=== PATIENT | female | born 1970 | race African-American/Black ===

== ENCOUNTER 2018-02-21 09:49 | Outpatient (CLI) | payer OTHER | END 2018-02-21 09:50 | disposition home or self-care (01) | LOC: BICULT 09:49 | PROVIDERS: ATTEND Internal Medicine Gastroenterology | DX: K29.80 Duodenitis without bleeding (principal); K64.9 Unspecified hemorrhoids | CPT/HCPCS: 76705 ==

== ENCOUNTER 2018-02-24 14:23 | Outpatient (CLI) | payer OTHER | END 2018-02-24 14:24 | disposition home or self-care (01) | LOC: BICMAMMO 14:23 | PROVIDERS: ATTEND Specialist | DX: N64.4 Mastodynia (principal) | CPT/HCPCS: 77066; G0279 ==

== ENCOUNTER 2019-07-13 14:28 | Outpatient (CLI) | payer OTHER ==
--- NOTE | 2019-07-13 16:03 | MMO ---
Bilateral MAMMO Bilat Screen [facility]. CLINICAL HISTORY: Patient is 48 years old and is seen for screening. The patient has no family history of breast cancer. The patient has no personal history of cancer. VIEWS: The views performed were: bilateral craniocaudal with tomosynthesis and bilateral mediolateral oblique with tomosynthesis. FILMS COMPARED: The present examination has been compared to prior imaging studies performed at [facility] on 04/14/2006, 02/18/2017 and 02/24/2018. This study has been interpreted with the assistance of computer-aided detection. MAMMOGRAM FINDINGS: The breasts are heterogeneously dense, which could obscure a lesion on mammography. There are stable benign appearing calcifications seen in both breasts. There are no suspicious masses, calcifications or areas of architectural distortion. There are no suspicious masses, suspicious calcifications, or new areas of architectural distortion. IMPRESSION: THERE IS NO MAMMOGRAPHIC EVIDENCE OF MALIGNANCY. A ROUTINE FOLLOW-UP MAMMOGRAM IN 1 YEAR IS RECOMMENDED. THE RESULTS OF THIS EXAM WERE SENT TO THE PATIENT. ACR BI-RADS Category 2 - Benign finding MAMMOGRAPHY NOTE: 1. A negative mammogram report should not delay a biopsy if a dominant of clinically suspicious mass is present. 2. Approximately 10% to 15% of breast cancers are not detected by mammography. 3. Adenosis and dense breasts may obscure an underlying neoplasm. Reported by: DANIKA ABBOTT MD Electonically Signed: [id number]
== END 2019-07-13 14:29 | disposition home or self-care (01) ==
LOC: BICMAMMO 14:28
PROVIDERS: ATTEND Family Medicine
DX: Z12.31 Encounter for screening mammogram for malignant neoplasm of breast (principal)
CPT/HCPCS: 77063; 77067

== ENCOUNTER 2020-07-15 13:02 | Outpatient (CLI) | payer OTHER ==
--- NOTE | 2020-07-15 13:34 | RAD ---
Exam: Cervical spine 5 views HISTORY: Cervical spondylolysis. FINDINGS: On the open-mouth projection, lateral masses of C1 and C2 articulate probably. On the AP pr ojection, there is mild facet arthropathy at multiple levels. No malalignment Predental space is normal. No prevertebral soft tissue swelling. In the neutral lateral position, the re is straightening of normal cervical lordosis. Mild loss of disc space height and osteophyte formation at C3-C4 and C4-C5. Mild to moderate degenerative changes at C5-C6 and C6-C7. Cervicothorac ic junction is unremarkable. Upon extension and flexion, there is no abnormal motion. IMPRESSION: Multilevel degenerative changes of the cervical spine as described above.
== END 2020-07-15 13:03 | disposition home or self-care (01) ==
LOC: BICRAD 13:02
PROVIDERS: ATTEND Neurological Surgery
DX: M47.812 Spondylosis without myelopathy or radiculopathy, cervical region (principal)
CPT/HCPCS: 72050

== ENCOUNTER 2020-07-22 09:45 | Outpatient (CLI) | payer OTHER ==
[2020-07-22 11:39] LABS: INR-International Normal Ratio 0.9; Prothrombin Time 12.3 sec (12.0-14.7)
--- NOTE | 2020-07-22 11:41 | RAD ---
PA AND LATERAL CHEST: Date: 07/22/2020 HISTORY: Preop. COMPARISON: 11/18/2012 study. FINDINGS: Heart size and mediastinum within normal limits. The lungs are clear of any infiltrative process. Art hritic changes in the spine. IMPRESSION: No active intrathoracic disease. POS: NIK
[2020-07-22 12:10] LABS: #Eosinphils 0.1 thou/uL (0.0-0.7); #Lymphocytes 2.6 thou/uL (1.20-3.40); #Monocytes 0.4 thou/uL (0.11-0.59); #Neutrophils 2.9 thou/uL (1.40-6.50); %Basophils 0.2 % (0.0-1.0); %Eosinophils 1.6 % (0.0-10.0); %Lymphocytes 42.2 % (21.0-51.0); %Monocytes 7.4 % (0.0-10.0); %Neutrophils 48.6 % (42.0-75.0); Mean Corpuscular HGB CONC 33.4 g/dL (32.0-36.0); Mean Corpuscular Hemoglobin 31.3 pg (27.0-31.0); Mean Corpuscular Volume 93.6 fL (78.0-98.0); Mean Platelet Volume 11.4 fL (7.4-10.4); Platelet Count 193 thou/uL (130-400); RBC Distribution Width 11.9 % (11.5-14.5); Red Blood Cell (RBC) Count 3.85 mill/uL (4.20-5.40)
[2020-07-22 12:19] LABS: Anion Gap 16 mmol/L (10-20); BUN (Urea Nitrogen) 12 mg/dL (7.0-18.7); Calc. Creatinine Clearance 0 mL/min (70-130); Carbon Dioxide 21 mmol/L (22-29); Chloride 107 mmol/L (98-107); Estimated GFR-MDRD 89; Potassium 4.3 mmol/L (3.5-5.1); Sodium 140 mmol/L (136-145)
[2020-07-22 12:20] LABS: ALT (SGPT) 15 U/L (8-55); AST (SGOT) 16 U/L (5-34); Albumin 4.2 g/dL (3.5-5.0); Alkaline Phosphatase 89 U/L (40-110); Bilirubin, Total 0.5 mg/dL (0.2-1.2); Calcium 9.3 mg/dL (7.8-10.44); Glucose 86 mg/dL (70-105); Protein, Total 7.2 g/dL (6.0-8.3)
[2020-07-22 14:47] LABS: Bilirubin Negative (Negative); Blood, Urine Negative (Negative); Clarity Clear (Clear); Glucose, Urine (Dipstick) Normal (Negative); Ketone, Urine Negative (Negative); Leukocyte Negative Leu/uL (Negative); Nitrite Negative (Negative); Protein, Urine (Dipstick) Negative (Neg-Trace); Specific Gravity, Urine 1.016 (1.002-1.036); Urobilinogen Normal mg/dL (Less than 2); pH, Urine 6.5 (5.0-9.0)
== END 2020-07-22 09:46 | disposition home or self-care (01) ==
LOC: SCSRAD 09:45
PROVIDERS: ATTEND Family Medicine
DX: Z01.818 Encounter for other preprocedural examination (principal)
CPT/HCPCS: 36415; 71046; 80053; 81003; 84443; 85025; 85610; 85730

== ENCOUNTER 2020-08-28 06:40 | Outpatient (CLI) | payer OTHER ==
[2020-08-28 13:22] LABS: Hemoglobin 12.3 g/dL (12.0-16.0); Mean Corpuscular HGB CONC 31.9 G/DL (32.0-36.0); Mean Corpuscular Hemoglobin 29.5 PG (27.0-33.0); Mean Corpuscular Volume 92.3 fl (80.0-100.0); Mean Platelet Volume 12.4 fl (7.4-10.4); Platelet Count 254 10x3/uL (130-400); RBC Distribution Width 12.9 % (11.5-14.5); Red Blood Cell (RBC) Count 4.17 10x6/uL (3.90-5.20); White Blood Cell (WBC) Count 6.4 10x3/uL (4.5-11.0)
[2020-08-28 13:44] LABS: PTT 25.8 sec (22.0-33.0); Prothrombin Time 10.6 sec (9.5-12.1)
[2020-08-28 20:53] LABS: SARS-CoV-2 MS2 Positive; SARS-CoV-2 N Gene Negative; SARS-CoV-2 S Gene Negative; SARS-CoV-2 by NAA Not Detected (NotDetected); SARS-CoV-2 orf1ab Negative
== END 2020-08-28 06:41 | disposition home or self-care (01) ==
LOC: LABBT 06:40
PROVIDERS: ATTEND Neurological Surgery
DX: Z01.812 Encounter for preprocedural laboratory examination (principal); Z20.828 Contact with and (suspected) exposure to other viral communicable diseases; M50.222 Other cervical disc displacement at C5-C6 level
CPT/HCPCS: 85027; 85610; 85730; 87635; 93005; 93010; U0003

== ENCOUNTER 2020-09-02 05:43 | Day surgery (SDC) | payer OTHER ==
[2020-08-30 11:37] VITALS: BMI 34.2
--- NOTE | 2020-09-01 15:47 | HP ---
REASON FOR HISTORY AND PHYSICAL: Surgery on 09/02/2020. Case #[id number]. HISTORY OF PRESENT ILLNESS: Ms. Valdovinos is a 49-year-old female with a chief complaint of neck and right arm pain. The pain radiates into right arm following the C7 and C6 dermatomes. Currently, works as a [employer] and her job aggravates her pain. She has tried medications, physical therapy, and injections with no lasting relief of her symptoms. Denies bladder or bowel dysfunction. REVIEW OF SYSTEMS: CONSTITUTIONAL: Denies fever or chills. ENT: Denies change in vision or hearing. CARDIAC: Denies chest pain, shortness of breath, or diaphoresis. PULMONARY: Denies shortness of breath, cough, or hemoptysis. GASTROINTESTINAL: Denies abdominal pain, nausea, vomiting, diarrhea, or change in stool formation and consistency. GENITOURINARY: Denies trouble with urination, frequency of urination, or bloody urine. SKIN: Denies skin rash, bruising, bleeding, or skin masses. MUSCULOSKELETAL: As per History of Present Illness. NEUROLOGICAL: As per History of Present Illness. PSYCHOLOGICAL: As per History of Present Illness. MEDICATIONS: 1. Losartan 50 mg. 2. Metoprolol. 3. Amlodipine. 4. Acetaminophen and codeine No. 4. 5. Ibuprofen. 6. Pantoprazole. 7. Hydrochlorothiazide. 8. Toprol 50 mg. ALLERGIES: STADOL. PAST MEDICAL HISTORY: Polyarthralgia, hypertension, normal stress test. PAST SURGICAL HISTORY: Two ; hernia x2; left knee scope; hysterectomy, partial; right breast cyst, benign. HOSPITALIZATIONS: As above surgeries. FAMILY HISTORY: Father, , diagnosed with heart disease. Mother, alive, hypertension. Siblings, alive, hypertension. SOCIAL HISTORY: Nonsmoker. Denies illicit drugs or alcohol use. PHYSICAL EXAMINATION: VITAL SIGNS: Weight 218, height 67 inches, and BMI 34.30. HEENT: Pupils are equal. Extraocular movements are intact. NECK: Soft, supple. No masses are noted. Range of motion is intact and slightly painful. NEUROLOGIC: Awake, alert, and oriented x3. Memory, attention, and fund of knowledge normal. Cranial nerves are grossly intact. Gait and station are normal. Toe, heel, and tandem walking normal. Motor exam; normal strength in the deltoids, biceps, triceps, wrist extensors, and interossei. Sensory exam; there is no dermatomal sensory loss in C5, C6, C7, C8, or T1. Negative Tinel's at wrist and elbows. Spine exam, Spurling's with neck pain only. No arm pain. IMAGING DATA: Myelogram of the C-spine, four-level disk disease with canal foraminal stenosis. X-ray of C-spine, flexion and extension stable. ASSESSMENT: 1. Cervical disk disorder at C5-C6 with radiculopathy. 2. Cervical disk disorder at C6-C7 level with radiculopathy. PLAN: 1. ACDF C5-C6 and C6-C7. 2. Preop labs; CBC, PT, PTT, COVID-19. 3. Anesthesia clearance. INFORMED CONSENT: We discussed the indications, risks, benefits, alternatives, and expected results from surgery. The risks discussed included, but were not limited to, bleeding, infection, CSF leak, nerve damage, weakness, swallowing trouble, feeding tube placement, tracheal injury, esophageal injury, vocal cord injury, spinal cord injury, incontinence, paralysis, ventilator dependency, wheelchair dependency, stroke, loss of vision, carotid artery injury, jugular vein injury, hardware misplacement, cardiopulmonary complications of anesthesia or . Long-term complications discussed included, but were not limited to hardware failure and degeneration of surrounding disk. She understands the risks and is willing to proceed. Job ID: [id number]
[2020-09-02] MEDS ORDERED: Thrombin 5000 UNITS/5 ML VIAL ONE (06:00)
[2020-09-02] MEDS ORDERED: Midazolam HCl 2 mg/2 ml Vial ONE (06:27)
[2020-09-02] MEDS ORDERED: Fentanyl 250 MCG/5 ML VIAL ONE (06:29)
[2020-09-02] MEDS ORDERED: Rocuronium Bromide 10 MG/ML (10ML VIAL) ONE (09:44)
[2020-09-02] MEDS ORDERED: Ondansetron PF 4 MG/2 ML Vial ONE (09:44)
[2020-09-02] MEDS ORDERED: Vecuronium 10 MG VIAL ONE (09:44)
[2020-09-02] MEDS ORDERED: Dexamethasone 20 MG/5 ML VIAL ONE (09:44)
[2020-09-02] MEDS ORDERED: Esmolol 100 MG/10 ML VIAL ONE (09:44)
[2020-09-02] MEDS ORDERED: Lidocaine 1% PF 5 ML VIAL ONE (09:44)
[2020-09-02] MEDS ORDERED: PROPOFOL 200 MG/20 ML VIAL ONE (09:44)
[2020-09-02] MEDS ORDERED: Glycopyrrolate 0.2 MG/ML 5 ML SYRINGE ONE (09:44)
[2020-09-02] MEDS ORDERED: PHENYLEPHRINE-NS 100 MCG/ML 10 ML SYRINGE ONE (09:44)
--- NOTE | 2020-09-02 10:42 | OP ---
DATE OF PROCEDURE: 09/02/2020 ANIMAL SCIENTIST: Ervin Mosqueda PA-C PREOPERATIVE INDICATION: Treat pain and prevent neurological deterioration. PREOPERATIVE DIAGNOSIS: Cervical intervertebral disk disease with right C6 and C7 radiculopathy. POSTOPERATIVE DIAGNOSIS: Cervical intervertebral disk disease with right C6 and C7 radiculopathy. PROCEDURES PERFORMED: 1. Anterior cervical diskectomy, C5-C6 and C6-C7. 2. Intervertebral arthrodesis C5-6, C6-7 3. Placement of intervertebral biomechanical device, C5-C6 and C6-C7. 4. Anterior cervical plating, C5-C6 and C6-C7 (separate from the interbody device). 5. Local morselized autograft and morselized allograft. 6. Operating microscope. PREOPERATIVE MEDICATION: Ancef 2 g IV. DRAIN NUMBER: Zero. DRAIN TYPE: None. DESCRIPTION OF PROCEDURE: The patient was brought to the operating room. General endotracheal anesthesia was induced. The patient was positioned supine on the operating table and her head supported by a gel-filled donut-shaped headrest. A lateral fluoro radiograph was used to plan our incision. The right side of the neck was sterilely prepped and draped. We opened our incision with a 10 blade knife and controlled bleeding with bipolar cautery. We dissected sharply to the platysma and cut this muscle in line with our incision. We continued our dissection medial to the sternocleidomastoid and lateral to the trachea and esophagus and arrived at the prevertebral space. We placed a marker at C5-C6 and took a lateral fluoro radiograph to confirm the levels upon which we were operating. We elevated the longus colli muscles and placed a lateral retractor under those muscles. Distraction pins were placed at C5 and C7. We distracted across the intervening interspaces. We incised the interspaces with a 15 blade knife and removed disk contents using curettes and rongeurs. The operating microscope was brought into the field. Under microscopic magnification and using microsurgical techniques, we removed the remainder of the intervertebral disk. We accessed the ventral epidural space with microcurettes. We removed posterior osteophytes and posterior longitudinal ligament with Kerrison rongeurs from one neural foramen to the other until we had a good decompression of the dura throughout. This was performed at C5-C6 and again at C6-C7. We turned our attention to arthrodesis. We prepared the endplates for grafting with curettes. We measured the height of each interspace to 6 mm with a bone rasp. We brought the appropriately-sized PEEK intervertebral grafts into the field. Osteophytes were removed during our decompression, were cleaned of soft tissue attachments, morcellized and added into demineralized bone matrix to form our fusion substrate. The substrate was placed in the PEEK devices and those were advanced into the interspaces under radiographic guidance to the appropriate depth. We removed our distraction pins and the operating microscope. A 28-mm anterior cervical plate was brought into the field. We drilled engine pilot holes through the plate into the vertebral bodies and affixed the plate using 14 mm screws. Fixed angle screws were used at C7 and variable angle screws at C5 and C6. We engaged the locking mechanism over each of the six screws. AP and lateral fluoro radiographs confirmed adequate positioning for instrumentation. We irrigated copiously with bacitracin irrigation. We closed the wound in anatomical layers and applied a sterile dressing. This was a clean case, no contamination. Job ID: [id number] MTDD
[2020-09-02] MEDS ORDERED: Fentanyl 100 MCG/2 ML VIAL ONE (11:08)
[2020-09-02] MEDS ORDERED: Promethazine HCl 25 MG/ML VIAL ONE (13:22)
[2020-09-02] MEDS ORDERED: Scopolamine 1.5 mg/72 hour Patch ONE (13:36)
[2020-09-02] MEDS ORDERED: HYDROcodone/Acetaminophen 5/325 mg Tablet ONE (14:14)
== END 2020-09-02 15:09 | disposition home or self-care (01) ==
LOC: SDC 05:43
PROVIDERS: ATTEND Neurological Surgery
PROC: 0RG1071 Fusion of Cervical Vertebral Joint with Autologous Tissue Substitute, Posterior Approach, Posterior Column, Open Approach (ICD-10-PCS; principal; 2020-09-02)
DX: M50.122 Cervical disc disorder at C5-C6 level with radiculopathy (principal); K21.9 Gastro-esophageal reflux disease without esophagitis; Z79.899 Other long term (current) drug therapy; Z88.5 Allergy status to narcotic agent
CPT/HCPCS: 76000; C1713; C1776; J0690; J1100; J2250; J2405; J2550; J2704; J3010; J3490

== ENCOUNTER 2020-09-07 20:49 | Emergency (ER) | payer OTHER ==
[2020-09-07] MEDS ORDERED: Ketorolac Tromethamine 30 MG/ML VIAL ONE (21:58)
[2020-09-07] MEDS ORDERED: Morphine 4 MG/ML VIAL ONE (21:58)
[2020-09-07] MEDS ORDERED: Acetaminophen 325 MG TAB ONE (21:58)
--- NOTE | 2020-09-07 22:04 | RAD ---
EXAM: CHEST ONE VIEW HISTORY: Neck surgery done on Wednesday. Pain at surgical site. Swelling in incision site. COMPARISON: 07/22/2020. FINDINGS: Cardiac silhouette is magnified by projection. Pulmonary vasculature is within normal limits. Linear area of increased density is seen at the right lung base likely related to subsegmental atelectasis. Minimal linear densities are seen at the left lung base also likely attributable to atel ectasis. No pleural effusion, pneumothorax, or area of consolidation is seen. No other interval change IMPRESSION: 1. Subsegmental atelectasis right lung base with minimal atelectasis left lung base. No acute cardiop ulmonary process is identified.
[2020-09-07] MEDS ORDERED: Ondansetron PF 4 MG/2 ML Vial ONE (22:17)
[2020-09-07 22:27] LABS: #Basophils 0.1 thou/uL (0.0-0.2); #Eosinphils 0.2 thou/uL (0.0-0.7); #Lymphocytes 2.8 thou/uL (1.20-3.40); #Monocytes 0.6 thou/uL (0.11-0.59); #Neutrophils 5.7 thou/uL (1.40-6.50); %Basophils 0.6 % (0.0-1.0); %Eosinophils 2.2 % (0.0-10.0); %Monocytes 6.4 % (0.0-10.0); %Neutrophils 60.8 % (42.0-75.0); Hemoglobin 12.4 g/dL (12.0-16.0); Mean Corpuscular HGB CONC 33.5 g/dL (32.0-36.0); Mean Corpuscular Hemoglobin 30.7 pg (27.0-31.0); Mean Corpuscular Volume 91.8 fL (78.0-98.0); Mean Platelet Volume 9.4 fL (7.4-10.4); Platelet Count 294 thou/uL (130-400); RBC Distribution Width 11.4 % (11.5-14.5); Red Blood Cell (RBC) Count 4.04 mill/uL (4.20-5.40); White Blood Cell (WBC) Count 9.4 thou/uL (4.8-10.8)
[2020-09-07] MEDS ORDERED: cefTRIAXone\\ROCEPHIN 1 GM VIAL ONE (22:47)
--- NOTE | 2020-09-07 23:06 | CT ---
EXAM: CT Neck Soft Tissue W Con PROVIDED CLINICAL HISTORY: Patient is post cervical neck fusion 5 days ago. Patient is having worsening incisional pain and swel ling. Intermittent fevers. COMPARISON: None FINDINGS: There are postoperative changes of the cervical spine related to anterior cervical fusion with an ant erior plate and screws transfixing the C5-6 and C6-7 levels. Intradiscal prostheses are present at these levels. No hardware complication is seen. Small amount of fluid is seen within the prevertebral space anterior to the upper cervical spine. There is a fluid and gas collection seen just to the right of midline and located just posterior to the cricoid cartilage and right lobe of the thyroid gl and which extends from the C3-4 level to the level of the C7 vertebral body and measures approximately 4.3 cm craniocaudal x2.7 cm transverse x1.6 cm AP in greatest the measured dimensions. Findings could be postoperative in origin, but infection and abscess formation is a possibility. There is prevertebral and retropharyngeal soft tissue swelling anterior to the level of postoperative changes and extending inferiorly to the level of the T2 vertebral body. There is subcutaneous soft tissue swelling and gas seen in the right anterolateral neck soft tissues likely related to postoperative changes. Bilateral parotid and submandibular glands have a normal CT appearance. There is mild mass effect on the posterior aspect of the right lobe of thyroid gland due to the small fluid and gas collection. Visualized upper lung zones are clear aside from calcified granuloma in the right upper lobe. Visualized paranasal sinuses are clear. IMPRESSION: 1. Postoperative changes cervical spine related to anterior cervical fusion of C5-C7. There is prever tebral soft tissue swelling extending along the length of the cervical spine to the level of the T2 vertebral body which may be related to postoperative change. However, there is a fluid and gas collec tion seen at the level of the postoperative changes just to the right of midline as described above, and developing abscess collection is suggested. 2. Subcutaneous soft tissue swelling with gas in the soft tissues right anterolateral neck likely pos toperative in origin. 3. Above findings discussed with Dr. Mg in the emergency department on 09/07/2020 at 2303 hours.
[2020-09-07 23:26] LABS: Albumin 3.8 g/dL (3.5-5.0)
[2020-09-07 23:27] LABS: Chloride 104 mmol/L (98-107); Potassium 3.7 mmol/L (3.5-5.1); Sodium 137 mmol/L (136-145)
[2020-09-07 23:28] LABS: Calcium 8.5 mg/dL (7.8-10.44); Glucose 101 mg/dL (70-105)
[2020-09-07 23:29] LABS: Globulin 3.3 g/dL (2.4-3.5); Protein, Total 7.1 g/dL (6.0-8.3)
[2020-09-07 23:30] LABS: Anion Gap 17 mmol/L (10-20); Bilirubin, Total 0.4 mg/dL (0.2-1.2); Carbon Dioxide 20 mmol/L (22-29)
[2020-09-07 23:31] LABS: Alkaline Phosphatase 82 U/L (40-110)
[2020-09-07 23:32] LABS: Calc. Creatinine Clearance 0 mL/min (70-130)
[2020-09-07 23:33] LABS: BUN (Urea Nitrogen) 8 mg/dL (7.0-18.7)
[2020-09-07 23:34] LABS: ALT (SGPT) 28 U/L (8-55); AST (SGOT) 24 U/L (5-34)
[2020-09-08] MEDS ORDERED: Vancomycin 1 GM/200 ML BAG ONE
== END 2020-09-08 01:17 | disposition home or self-care (01) ==
LOC: ERS 20:49
DX: M54.2 Cervicalgia (principal)
CPT/HCPCS: 36415; 70491; 71045; 80053; 83605; 85025; 87040; 93005; 96365; 96367; 96375; J0696; J1885; J2270; J2405; J3370

== ENCOUNTER 2020-10-28 11:03 | Outpatient (CLI) | payer OTHER ==
--- NOTE | 2020-10-28 11:18 | RAD ---
CERVICAL SPINE: 4 views INDICATIONS:Cervical radiculopathy. Postop. COMPARISON:None FINDINGS: Cervical vertebra maintain normal height and alignment Anterior fusion procedure. Anterior plate and screws transfix C5, C6, and C7. Interbody implants at t hese levels. Loss of disc space at C2-3, C3-4, and C4-5. Slight posterior listhesis at C4-5. Posterior elements are normally aligned. No evidence of fracture or osseous abnormality. No soft tissue abnormality identified. IMPRESSION: Postoperative and degenerative changes of cervical spine as described.
== END 2020-10-28 11:04 | disposition home or self-care (01) ==
LOC: TBSIIMAG 11:03
PROVIDERS: ATTEND Neurological Surgery
DX: M47.22 Other spondylosis with radiculopathy, cervical region (principal); Z98.890 Other specified postprocedural states
CPT/HCPCS: 72040

== ENCOUNTER 2021-03-30 12:17 | Emergency (ER) | payer OTHER ==
[2021-03-30] MEDS ORDERED: Ibuprofen 800 MG TAB ONE (12:42)
[2021-03-30 13:30] LABS: ALT (SGPT) 14 U/L (8-55); AST (SGOT) 23 U/L (5-34); Alkaline Phosphatase 100 U/L (40-110); Anion Gap 14 mmol/L (10-20); BUN (Urea Nitrogen) 9 mg/dL (9.8-20.1); Bilirubin, Total 0.4 mg/dL (0.2-1.2); Calc. Creatinine Clearance 0 mL/min (70-130); Calcium 9.4 mg/dL (7.8-10.44); Carbon Dioxide 19 mmol/L (22-29); Chloride 110 mmol/L (98-107); Globulin 3.7 g/dL (2.4-3.5); Glucose 102 mg/dL (70-105); Lipase 27 U/L (8-78); Potassium 4.4 mmol/L (3.5-5.1); Protein, Total 7.7 g/dL (6.0-8.3); Sodium 139 mmol/L (136-145)
== END 2021-03-30 14:00 | disposition home or self-care (01) ==
LOC: ERS 12:17
DX: S13.4XXA Sprain of ligaments of cervical spine, initial encounter (principal); I10 Essential (primary) hypertension; V89.2XXA Person injured in unspecified motor-vehicle accident, traffic, initial encounter
CPT/HCPCS: 36415; 71045; 72125; 80053; 83690

== ENCOUNTER 2021-10-14 14:34 | Outpatient (CLI) | payer BC | END 2021-10-14 14:35 | disposition home or self-care (01) | LOC: BICMAMMO 14:34 | PROVIDERS: ATTEND Family Medicine | DX: Z12.31 Encounter for screening mammogram for malignant neoplasm of breast (principal) | CPT/HCPCS: 77063; 77067 ==

== ENCOUNTER 2022-11-16 09:52 | Outpatient (CLI) | payer OTHER | END 2022-11-16 09:53 | disposition home or self-care (01) | LOC: SCSRAD 09:52 | PROVIDERS: ATTEND Family Medicine | DX: M25.561 Pain in right knee (principal) ==

== ENCOUNTER 2023-01-05 10:49 | Outpatient (CLI) | payer OTHER | END 2023-01-05 10:50 | disposition home or self-care (01) | LOC: BICMAMMO 10:49 | PROVIDERS: ATTEND Family Medicine | DX: Z12.31 Encounter for screening mammogram for malignant neoplasm of breast (principal) | CPT/HCPCS: 77063; 77067 ==

== ENCOUNTER 2023-04-22 15:26 | Outpatient (CLI) | payer OTHER | END 2023-04-22 15:27 | disposition home or self-care (01) | LOC: ULT 15:26 | PROVIDERS: ATTEND Nurse Practitioner Family | DX: R10.2 Pelvic and perineal pain (principal); Z90.710 Acquired absence of both cervix and uterus | CPT/HCPCS: 76856 ==

== ENCOUNTER 2023-05-31 13:04 | Outpatient (CLI) | payer OTHER ==
[2023-05-31 14:00] LABS: #Eosinphils 0.1 10x3/uL (0.0-0.5); #Monocytes 0.7 10x3/uL (0.0-1.1); %Basophils 0.6 % (0.0-2.0); %Eosinophils 1.2 % (0.0-6.0); %Lymphocytes 44.4 % (18.0-47.0); %Monocytes 13.8 % (0.0-10.0); %Neutrophils 39.8 % (40.0-75.0); Hematocrit 35.5 % (34.9-44.5); Hemoglobin 11.3 g/dL (12.0-15.5); Mean Corpuscular HGB CONC 31.8 g/dL (32.0-36.0); Mean Corpuscular Hemoglobin 29.4 pg (27.0-33.0); Mean Corpuscular Volume 92.2 fl (81.6-98.3); Mean Platelet Volume 11.5 fl (7.4-10.4); Platelet Count 247 10x3/uL (150-450); RBC Distribution Width 12.5 % (11.5-14.5); Red Blood Cell (RBC) Count 3.85 10x6/uL (3.90-5.03); White Blood Cell (WBC) Count 5.1 10x3/uL (3.5-10.5)
== END 2023-05-31 13:05 | disposition home or self-care (01) ==
LOC: LABBT 13:04
PROVIDERS: ATTEND Orthopaedic Surgery
DX: Z01.818 Encounter for other preprocedural examination (principal); S83.281A Other tear of lateral meniscus, current injury, right knee, initial encounter; M23.41 Loose body in knee, right knee
CPT/HCPCS: 85025; 93005; 93010

== ENCOUNTER 2023-06-01 08:50 | Outpatient (CLI) | payer OTHER ==
[2023-06-01] MEDS ORDERED: Iopamidol 370 76% 100 ML VIAL ONE (10:31)
== END 2023-06-01 08:51 | disposition home or self-care (01) ==
LOC: CT 08:50
PROVIDERS: ATTEND Nurse Practitioner Family
DX: R10.811 Right upper quadrant abdominal tenderness (principal); R10.30 Lower abdominal pain, unspecified; D18.00 Hemangioma unspecified site
CPT/HCPCS: 74177; Q9967

== ENCOUNTER 2023-06-03 05:50 | Day surgery (SDC) | payer OTHER ==
[2023-05-31 13:38] VITALS: BMI 31.8
[2023-06-03] MEDS ORDERED: Bupivacaine PF 0.5% 30 ML VIAL ONE (06:39)
[2023-06-03] MEDS ORDERED: PROPOFOL 20 ML ONE (06:39)
[2023-06-03] MEDS ORDERED: Lidocaine 2% PF 5 ML VIAL ONE (06:39)
[2023-06-03] MEDS ORDERED: CEFAZOLIN 2 GM VIAL ONE (06:51)
[2023-06-03] MEDS ORDERED: Sodium Chloride 0.9% 100 ML ONE (06:51)
[2023-06-03] MEDS ORDERED: Famotidine/PF 20 mg/2ml Vial ONE (06:58)
[2023-06-03] MEDS ORDERED: Metoclopramide HCl 10 MG/2 ML VIAL ONE (06:58)
[2023-06-03] MEDS ORDERED: Dexamethasone 20 MG/5 ML VIAL ONE (07:06)
[2023-06-03] MEDS ORDERED: Bupivacaine HCl 0.5%/Epinephrine 1:200,000/PF 30 ml Vial ONE (07:06)
[2023-06-03] MEDS ORDERED: Ondansetron PF 4 MG/2 ML Vial ONE (07:06)
[2023-06-03] MEDS ORDERED: PROPOFOL 200 MG/20 ML VIAL ONE (07:06)
[2023-06-03] MEDS ORDERED: Lidocaine 1% PF 5 ML VIAL ONE (07:06)
[2023-06-03] MEDS ORDERED: fentaNYL PF 100 MCG/2 ML SYRINGE ONE (07:08)
[2023-06-03] MEDS ORDERED: Midazolam HCl 2 mg/2 ml Vial ONE (07:08)
[2023-06-03] MEDS ORDERED: fentaNYL 50 mcg/mL 1 mL Vial ONE ×3 (08:33→09:20)
[2023-06-03] MEDS ORDERED: Promethazine HCl 25 MG/ML VIAL ONE (09:20)
[2023-06-03] MEDS ORDERED: HYDROcodone/Acetaminophen 5/325 mg Tablet ONE (09:53)
== END 2023-06-03 11:30 | disposition home or self-care (01) ==
LOC: SDC 05:50
PROVIDERS: ATTEND Orthopaedic Surgery
PROC: 0SBC4ZZ Excision of Right Knee Joint, Percutaneous Endoscopic Approach (ICD-10-PCS; principal; 2023-06-03)
DX: S83.281A Other tear of lateral meniscus, current injury, right knee, initial encounter (principal); M22.41 Chondromalacia patellae, right knee; Z88.5 Allergy status to narcotic agent; X58.XXXA Exposure to other specified factors, initial encounter
CPT/HCPCS: J1100; J2001; J2250; J2405; J2550; J2704; J2765; J3010; J3490; S0020; S0028

== ENCOUNTER 2023-11-26 12:33 | Outpatient (CLI) | payer BC | END 2023-11-26 12:34 | disposition home or self-care (01) | LOC: BICRAD 12:33 | PROVIDERS: ATTEND Nurse Practitioner Family | DX: R05.9 Cough, unspecified (principal); R09.89 Other specified symptoms and signs involving the circulatory and respiratory systems | CPT/HCPCS: 71046 ==

== ENCOUNTER 2024-03-02 13:21 | Outpatient (CLI) | payer BC | END 2024-03-02 13:22 | disposition home or self-care (01) | LOC: BICMAMMO 13:21 | PROVIDERS: ATTEND Nurse Practitioner Family | DX: Z12.31 Encounter for screening mammogram for malignant neoplasm of breast (principal) | CPT/HCPCS: 77063; 77067 ==

== ENCOUNTER 2025-08-09 14:41 | Outpatient (CLI) | payer BC | END 2025-08-09 14:42 | disposition home or self-care (01) | LOC: BICMAMMO 14:41 | PROVIDERS: ATTEND Nurse Practitioner Family | DX: Z12.31 Encounter for screening mammogram for malignant neoplasm of breast (principal) | CPT/HCPCS: 77063; 77067 ==